=== PATIENT | male | born 1945 | race Caucasian/White ===

== ENCOUNTER 2017-04-17 22:19 | Emergency (ER) | payer MEDICARE, MEDICAID, SELFPAY ==
[2017-04-17 22:22] VITALS: BP 131/69; PULSE 112; RESP 22; TEMP 38.7; O2SAT 86; BMI 35.2
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
--- NOTE | 2017-04-17 22:53 | HMH.EDCP ---
ED Disposition Clinical Impression: Collapse of left lung, Pleural effusion, left Fever Qualifiers: Fever type: unspecified Qualified Code(s): R50.9 - Fever, unspecified Disposition: Xfer Short-Term Hosp Condition on Discharge: Fair Referrals: Michael Young [Primary Care Provider] - Forms: Transfer Record - ED - Critical Care Critical Care Time: No Attestation: On 04/17/17, the high probability of a clinically significant, sudden or life threatening deterioration of the following system(s) required my full and direct attention, intervention and personal management. The time I documented below is in addition to time spent performing reported procedures but includes the following listed in this critical care notation. Medical Decision Making Vital Signs: 04/17/17 22:22 04/17/17 23:43 Temperature 101.7 F H Temperature Source Rectal Pulse Rate [Right Brachial] 112 H 104 H Respiratory Rate 22 22 Blood Pressure [Right Arm] 131/69 96/66 Blood Pressure Mean [Right Arm] 89 76 Blood Pressure Source [Right Arm] Automatic Cuff Automatic Cuff Blood Pressure Position [Right Arm] Sitting Sitting 02 Sat by Pulse Oximetry 86 L 97 Oxygen Delivery Method Room Air Nasal Cannula - Lab Data Lab Results 04/17/17 23:00: WBC 20.8 H*, RBC 4.80, Hgb 13.6 L, Hct 43.2, MCV 90.1, MCH 28.3, MCHC 31.4 L, RDW 14.8, Plt Count 422, MPV 7.5, Neut % (Auto) 78.4, Lymph % (Auto) 12.3, [place] % (Auto) 7.8, Eos % (Auto) 1.2, Baso % (Auto) 0.3, Neut # (Auto) 16.3 H, Lymph # (Auto) 2.6, [place] # (Auto) 1.6 H, Eos # (Auto) 0.3, Baso # (Auto) 0.1, Total Counted 100, Neutrophils % (Manual) 89 H, Lymphocytes % (Manual) 5 L, Monocytes % (Manual) 6, Platelet Estimate Normal, RBC Morphology Normal 04/17/17 23:00: Sodium 135 L, Potassium 4.5, Chloride 92 L, Carbon Dioxide 37 H, Anion Gap 10.5, BUN 42 H, Creatinine 1.68 H, Estimated Creat Clear 67, Estimated GFR 40 L, Est GFR ( Amer) 49 L, Glucose 164 H, Calcium 9.4, Total Bilirubin 0.5, AST 20, ALT 5 L, Alkaline Phosphatase 173 H, Total Creatine Kinase 21 L, CK-MB (CK-2) < 0.5, CK-MB (CK-2) Rel Index 2.4, Troponin I < 0.02, Total Protein 7.0, Albumin 1.8 L, Globulin 5.2 H, Albumin/Globulin Ratio 0.3 L 04/17/17 23:00: Lactic Acid 1.9 04/17/17 : Urine Color Yellow, Urine Appearance Clear, Urine pH 5.5, Ur Specific [place] 1.015, Urine Protein Trace, Urine Glucose (UA) Negative, Urine Ketones Negative, Urine Blood Negative, Urine Nitrate Negative, Urine Bilirubin Negative, Urine Urobilinogen 1.0, Ur Leukocyte Esterase Negative, Urine RBC Occasional, Urine WBC Occasional, Ur Squamous Epith Cells None, Urine Bacteria None 04/18/17 : Influenza Type A Ag Negative, Influenza Type B Ag Negative, Group A Strep Rapid Negative Result diagrams: 04/17/17 23:00 04/17/17 23:00 Orders (Tests/Meds): ED MEDICATIONS Generic Name Dose Route Start Last Admin Trade Name Freq PRN Reason Stop Dose Admin Levofloxacin/Dextrose 750 mg in 150 mls @ 100 mls/hr 04/18/17 01:16 Levofloxacin 750mg/150ml Premix IV 04/18/17 02:45 ONCE ONE Protocol Discontinued Medications Generic Name Dose Route Start Last Admin Trade Name Freq PRN Reason Stop Dose Admin Acetaminophen 650 mg 04/18/17 01:03 Acetaminophen 325mg Tab PO 04/18/17 01:04 ONCE ONE Cefepime HCl 2 gm/ Sodium 100 mls @ 200 mls/hr 04/18/17 01:15 Chloride IV 04/18/17 01:16 ONCE ONE Protocol Miscellaneous 1 each 04/18/17 01:15 Vancomycin Consult Request NOTAPPLIC 04/18/17 01:16 CONSULT PHARMACY ONE ORDERS Category Date Time Status CT chest wo con Stat Cat Scan 04/17/17 23:40 Taken Chest XR -- portable [XR chest portable] Stat Exams 04/17/17 22:50 Taken Amylase Stat Lab 04/18/17 00:59 Ordered Lipase Stat Lab 04/18/17 00:59 Ordered Blood Culture Stat Micro 04/17/17 23:00 Received Strep Screen Confirmation Stat Micro 04/18/17 Received ECG Request by /Thomas Stat Y 04/17/17 22:50 Ord
[2017-04-17 23:21] LABS: Basophils # 0.1 K/mm3 (0-0.2); Basophils % 0.3 % (0.1-2.0); Eosinophils # 0.3 K/mm3 (0.0-0.4); Eosinophils % 1.2 % (0.1-12.0); Hematocrit 43.2 % (42.0-52.0); Hemoglobin 13.6 g/dL (14.1-18.0); Lymphocytes # 2.6 K/mm3 (0.7-4.5); Lymphocytes % 12.3 K/mm3 (10-50); Mean Corpuscular HGB Conc 31.4 g/dL (31.8-35.4); Mean Corpuscular Hemoglobin 28.3 pg (27.0-31.2); Mean Corpuscular Volume 90.1 fl (80-94); Mean Platelet Volume 7.5 fl (7.4-10.4); Monocytes # 1.6 K/mm3 (0.1-1.0); Monocytes % 7.8 % (1.7-9.3); Neutrophils # 16.3 K/mm3 (1.8-7.8); Neutrophils % 78.4 % (37.0-80.0); Platelet Count 422 K/mm3 (142-424); Red Cell Distribution Width 14.8 % (11.5-17.5); White Blood Count 20.8 K/mm3 (4.8-10.8)
[2017-04-17 23:22] LABS: Appearance,Urine CLEAR (Clear); Bilirubin,Urine Negative (Negative); Blood, Urine Negative (Negative); Color,Urine YELLOW (Yellow); Glucose,Urine (UA) Negative (Negative); Ketones,Urine Negative (Negative); Leukocyte Esterase,Urine Negative (Negative); Microscopic, Urine URINE MICROSCOPIC (MICROSCOPIC); Nitrate,Urine Negative (Negative); PH,Urine 5.5 (5.0-8.5); Protein,Urine TRACE (Negative); Specific Gravity, Urine 1.015 (1.005-1.030)
[2017-04-17 23:31] LABS: MANUAL DIFFERENTIAL MANUAL DIFFERENTIAL (MANUAL DIFF)
[2017-04-17 23:32] LABS: Lactic Acid 1.9 mmol/L (0.4-2.0)
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
[2017-04-17 23:43] VITALS: BP 96/66; PULSE 104; RESP 22; O2SAT 97
[2017-04-17 23:43] LABS: Alanine Aminotransferase 5 U/L (12-78); Albumin Level 1.8 gm/dL (3.4-5.0); Albumin/Globulin Ratio 0.3 (1.1-1.8); Alkaline Phosphatase 173 U/L (46-116); Anion Gap 10.5 mEq/L (5-15); Aspartate Amino Transferase 20 U/L (15-37); Bilirubin,Total 0.5 mg/dL (0.2-1.0); Blood Urea Nitrogen 42 mg/dL (7-18); CKMB Relative Index 2.4 U/L (0-4.0); Calcium 9.4 mg/dL (8.5-10.1); Carbon Dioxide 37 mmol/L (21.0-32.0); Chloride 92 mmol/L (98-107); Creatine Kinase 21 U/L (39-308); Creatine Kinase MB < 0.5 mg/ml (0.0-3.6); Creatinine Clearance Estimated 67 mL/min (0-300); Creatinine,Serum 1.68 mg/dL (0.70-1.30); Estimated Glomerular Filt Rate 40 ml/min (>60); GFR (African American) 49 ML/MIN (>60); Globulin 5.2 gm/dl (1.3-3.2); Glucose 164 mg/dL (74-106); Potassium 4.5 mmoL/L (3.5-5.1); Sodium 135 mmol/L (136-145); Troponin I < 0.02 ng/ml (0.00-0.06)
[2017-04-18 00:12] LABS: RBC,Urine Occasional #/hpf (0-3); WBC,Urine Occasional #/hpf (0-3)
--- NOTE | 2017-04-18 01:12 | PC.NURSE ---
DR LAKHANI SPEAKING WITH DR VALDIVIA FOR FURTHER EVAL.
[2017-04-18 01:23] LABS: Lymphocytes % 5 % (10-50); Monocytes % 6 % (2-9); Neutrophils % 89 % (42-76); Platelet Estimate Normal; RBC Morphology Normal; Total Cells Counted 100
[2017-04-18 01:25] LABS: Strep Scrn Group A (Rapid) Negative (Negative)
[2017-04-18 01:26] LABS: Amylase 28 U/L (25-125); Lipase 46 u/L (73-393)
--- NOTE | 2017-04-18 01:30 | PC.NURSE ---
DR LAKHANI SPEAKING WITH DR KELLEY AT FOR TRANSFER
[2017-04-18 02:05] VITALS: BP 142/74; PULSE 105; RESP 20; O2SAT 96
--- NOTE | 2017-04-18 02:07 | PC.NURSE ---
WHILE PULLING PATIENT UP IN BED PATIENT OBTAINED SKIN TEAR TI LEFT ELBOW/ARM. AREA REPAIRED WITH STERI STRIPS AND COVERED WITH KOBAN
--- NOTE | 2017-04-18 02:24 | PC.NURSE ---
transferred to [facility] ed per ems. Condition stable
[2017-04-18 02:25] VITALS: BP 142/74; PULSE 105; RESP 24; O2SAT 96
== END 2017-04-18 02:27 | disposition short-term general hospital (02) ==
PROVIDERS: Emergency Provider Emergency Medicine; Family Provider Internal Medicine; PCP Internal Medicine
DX: J98.19 Other pulmonary collapse (principal); J90 Pleural effusion, not elsewhere classified; R50.9 Fever, unspecified; Z79.02 Long term (current) use of antithrombotics/antiplatelets; Z79.891 Long term (current) use of opiate analgesic; Z79.899 Other long term (current) drug therapy; E11.9 Type 2 diabetes mellitus without complications
CPT/HCPCS: 71045; 71250; 80053; 81001; 82150; 82550; 82553; 83605; 83690; 84484; 85007; 85025; 87040; 87275; 87276; 87430; 93005; 93041; 96365; 96367; 99285; J1956

== ENCOUNTER 2017-05-30 12:05 | Emergency (ER) | payer MEDICARE, MEDICAID, SELFPAY ==
[2017-05-30 12:08] VITALS: BP 119/59; PULSE 63; RESP 22; TEMP 36.6; O2SAT 96; BMI 33.4
--- NOTE | 2017-05-30 12:29 | HMH.EDGENADL ---
ED Disposition Clinical Impression: Rectal bleeding, External hemorrhoids without complication, Lung cancer Disposition: Home, Self-Care Condition on Discharge: Fair Additional Instructions: 1- repeat H/H in AM x 3 days and report to the long-term doctor. 2- hemoccult stool x 3 . 3- recommend outpatient colonscopy for colon cancer screening. 4- preparation h for hemorrhides prn. 5- return for any change. Referrals: Michael Young [Primary Care Provider] - - Critical Care Critical Care Time: No Attestation: On 05/30/17, the high probability of a clinically significant, sudden or life threatening deterioration of the following system(s) required my full and direct attention, intervention and personal management. The time I documented below is in addition to time spent performing reported procedures but includes the following listed in this critical care notation. Medical Decision Making - Medical Records Medical records reviewed: Yes: I reviewed the patient's medical records. Comment: I did review his long-term records including medications and most recent labs dated May 04, 2017. Vital Signs: 05/30/17 12:08 05/30/17 12:55 05/30/17 13:38 Temperature 97.8 F Temperature Source Oral Pulse Rate [Orthostatic Lying Right Radial] 60 Pulse Rate [Orthostatic Sitting Right Radial] 65 Pulse Rate [Right Brachial] 63 59 L Respiratory Rate 22 18 Blood Pressure [Orthostatic Lying Right Arm] 135/72 Blood Pressure [Orthostatic Sitting Right Arm] 138/83 Blood Pressure [Right Arm] 119/59 138/71 Blood Pressure Mean [Right Arm] 79 93 Blood Pressure Source [Right Arm] Automatic Cuff Automatic Cuff Blood Pressure Position [Right Arm] Sitting Sitting 02 Sat by Pulse Oximetry 96 97 Oxygen Delivery Method Nasal Cannula Nasal Cannula Oxygen Flow Rate (LPM) 2 2 - Lab Data Lab Results 05/30/17 12:00: WBC 11.0 H, RBC 4.53 L, Hgb 12.7 L, Hct 41.2 L, MCV 90.9, MCH 28.0, MCHC 30.8 L, RDW 15.7, Plt Count 434 H, MPV 7.0 L, Neut % (Auto) 54.0, Lymph % (Auto) 32.9, [place] % (Auto) 5.1, Eos % (Auto) 7.2, Baso % (Auto) 0.7, Neut # (Auto) 5.9, Lymph # (Auto) 3.6, [place] # (Auto) 0.6, Eos # (Auto) 0.8 H, Baso # (Auto) 0.1 05/30/17 12:00: Sodium 139, Potassium 4.1, Chloride 94 L, Carbon Dioxide 42 H*, Anion Gap 7.1, BUN 24 H, Creatinine 1.33 H, Estimated Creat Clear 72, Estimated GFR 53 L, Est GFR ( Amer) 64, Glucose 45 L, Calcium 9.2, Total Bilirubin 0.4, AST 9 L, ALT 10 L, Alkaline Phosphatase 129 H, Total Protein 7.5, Albumin 2.8 L, Globulin 4.7 H, Albumin/Globulin Ratio 0.6 L 05/30/17 12:00: PT 10.4, INR 0.96, APTT 25.6 05/30/17 12:00: Magnesium 1.6 05/30/17 12:15: Stool Occult Blood Negative Result diagrams: 05/30/17 12:00 05/30/17 12:00 Orders (Tests/Meds): ORDERS Category Date Time Status Acute abdomen XR series [XR acute abdomen series] Stat Exams 05/30/17 12:33 Taken - Radiology Data #1 Image(s): Chest, Abdomen Image Reviewed: Yes I reviewed the patient's radiology image Preliminary Findings: Abnormal Chest x-ray: Chronic changes that is a stable from the prior chest x-ray 12/09/2016. No acute infiltrates cannot be excluded. Abdominal x-rays: Postop changes chronic pattern no acute findings. - Mario Inquiry Pt receiving controlled substance: No Mario was queried for this patient: No Medical Decision Making Narrative: I reviewed Mr. Bryan's labs and x-rays and compared to prior labs from November 2016 and April 2017. His hemoglobin is better 12 g. He has chronic changes on the chest x-ray that is unchanged from prior February 2017 examination. His Hemoccult stool was negative and orthostatics was stable. He had no more episodes of rectal bleeding. The source of bleeding most likely to be an external hemorrhoid. Though I would recommend repeat hemoglobin in the morning and follow-up with colonoscopy. The patient remained stable with no pain
--- NOTE | 2017-05-30 12:32 | ED_ITS ---
ED Disposition Clinical Impression: Rectal bleeding, External hemorrhoids without complication, Lung cancer Disposition: Home, Self-Care Condition on Discharge: Fair Additional Instructions: 1- repeat H/H in AM x 3 days and report to the prison doctor. 2- hemoccult stool x 3 . 3- recommend outpatient colonscopy for colon cancer screening. 4- preparation h for hemorrhides prn. 5- return for any change. Referrals: Michael Young [Primary Care Provider] - - Critical Care Critical Care Time: No Attestation: On 05/30/17, the high probability of a clinically significant, sudden or life threatening deterioration of the following system(s) required my full and direct attention, intervention and personal management. The time I documented below is in addition to time spent performing reported procedures but includes the following listed in this critical care notation. Medical Decision Making - Medical Records Medical records reviewed: Yes: I reviewed the patient's medical records. Comment: I did review his prison records including medications and most recent labs dated May 04, 2017. Vital Signs: 05/30/17 12:08 05/30/17 12:55 05/30/17 13:38 Temperature 97.8 F Temperature Source Oral Pulse Rate [Orthostatic Lying Right Radial] 60 Pulse Rate [Orthostatic Sitting Right Radial] 65 Pulse Rate [Right Brachial] 63 59 L Respiratory Rate 22 18 Blood Pressure [Orthostatic Lying Right Arm] 135/72 Blood Pressure [Orthostatic Sitting Right Arm] 138/83 Blood Pressure [Right Arm] 119/59 138/71 Blood Pressure Mean [Right Arm] 79 93 Blood Pressure Source [Right Arm] Automatic Cuff Automatic Cuff Blood Pressure Position [Right Arm] Sitting Sitting 02 Sat by Pulse Oximetry 96 97 Oxygen Delivery Method Nasal Cannula Nasal Cannula Oxygen Flow Rate (LPM) 2 2 - Lab Data Lab Results 05/30/17 12:00: WBC 11.0 H, RBC 4.53 L, Hgb 12.7 L, Hct 41.2 L, MCV 90.9, MCH 28.0, MCHC 30.8 L, RDW 15.7, Plt Count 434 H, MPV 7.0 L, Neut % (Auto) 54.0, Lymph % (Auto) 32.9, [place] % (Auto) 5.1, Eos % (Auto) 7.2, Baso % (Auto) 0.7, Neut # (Auto) 5.9, Lymph # (Auto) 3.6, [place] # (Auto) 0.6, Eos # (Auto) 0.8 H, Baso # (Auto) 0.1 05/30/17 12:00: Sodium 139, Potassium 4.1, Chloride 94 L, Carbon Dioxide 42 H*, Anion Gap 7.1, BUN 24 H, Creatinine 1.33 H, Estimated Creat Clear 72, Estimated GFR 53 L, Est GFR ( Amer) 64, Glucose 45 L, Calcium 9.2, Total Bilirubin 0.4, AST 9 L, ALT 10 L, Alkaline Phosphatase 129 H, Total Protein 7.5, Albumin 2.8 L, Globulin 4.7 H, Albumin/Globulin Ratio 0.6 L 05/30/17 12:00: PT 10.4, INR 0.96, APTT 25.6 05/30/17 12:00: Magnesium 1.6 05/30/17 12:15: Stool Occult Blood Negative Result diagrams: 05/30/17 12:00 05/30/17 12:00 Orders (Tests/Meds): ORDERS Category Date Time Status Acute abdomen XR series [XR acute abdomen series] Stat Exams 05/30/17 12:33 Taken - Radiology Data #1 Image(s): Chest, Abdomen Image Reviewed: Yes I reviewed the patient's radiology image Preliminary Findings: Abnormal Chest x-ray: Chronic changes that is a stable from the prior chest x-ray 2016. No acute infiltrates cannot be excluded. Abdominal x-rays: Postop changes chronic pattern no acute findings. - Mario Inquiry Pt receiving controlled substance: No Mario was queried for this patient: No Medical De
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
[2017-05-30 12:36] LABS: Basophils # 0.1 K/mm3 (0-0.2); Basophils % 0.7 % (0.1-2.0); Eosinophils # 0.8 K/mm3 (0.0-0.4); Eosinophils % 7.2 % (0.1-12.0); Hematocrit 41.2 % (42.0-52.0); Hemoglobin 12.7 g/dL (14.1-18.0); Lymphocytes # 3.6 K/mm3 (0.7-4.5); Lymphocytes % 32.9 K/mm3 (10-50); Mean Corpuscular HGB Conc 30.8 g/dL (31.8-35.4); Mean Corpuscular Volume 90.9 fl (80-94); Monocytes # 0.6 K/mm3 (0.1-1.0); Monocytes % 5.1 % (1.7-9.3); Neutrophils # 5.9 K/mm3 (1.8-7.8); Platelet Count 434 K/mm3 (142-424); Red Blood Count 4.53 M/mm3 (4.60-6.20); Red Cell Distribution Width 15.7 % (11.5-17.5)
[2017-05-30 12:47] LABS: Magnesium 1.6 mg/dL (1.4-2.2)
[2017-05-30 12:47] LABS: Occult Blood,Stool Negative (Negative)
[2017-05-30 12:50] LABS: Activated Partial Thrombo Time 25.6 seconds (23.6-34.0); INR 0.96 (0.9-1.1); Prothrombin Time 10.4 seconds (9.4-11.8)
[2017-05-30 12:51] LABS: Alanine Aminotransferase 10 U/L (12-78); Albumin Level 2.8 gm/dL (3.4-5.0); Albumin/Globulin Ratio 0.6 (1.1-1.8); Alkaline Phosphatase 129 U/L (46-116); Anion Gap 7.1 mEq/L (5-15); Aspartate Amino Transferase 9 U/L (15-37); Bilirubin,Total 0.4 mg/dL (0.2-1.0); Blood Urea Nitrogen 24 mg/dL (7-18); Calcium 9.2 mg/dL (8.5-10.1); Chloride 94 mmol/L (98-107); Creatinine Clearance Estimated 72 mL/min (0-300); Creatinine,Serum 1.33 mg/dL (0.70-1.30); Estimated Glomerular Filt Rate 53 ml/min (>60); GFR (African American) 64 ML/MIN (>60); Globulin 4.7 gm/dl (1.3-3.2); Potassium 4.1 mmoL/L (3.5-5.1); Sodium 139 mmol/L (136-145); Total Protein,Serum 7.5 gm/dL (6.4-8.2)
[2017-05-30 12:53] LABS: Glucose 45 mg/dL (74-106)
[2017-05-30 12:54] LABS: Carbon Dioxide 42 mmol/L (21.0-32.0)
[2017-05-30 12:55] VITALS: BP 135/72; BP 138/83; PULSE 60; PULSE 65
--- NOTE | 2017-05-30 12:58 | PC.NURSE ---
lab called to report glucose on blood that was drawn by EMS was 45. Pt received oral glucose per EMS.
--- NOTE | 2017-05-30 13:00 | PC.NURSE ---
Rad at bedside doing chest xray.
[2017-05-30 13:38] VITALS: BP 138/71; PULSE 59; RESP 18; O2SAT 97
--- NOTE | 2017-05-30 14:10 | PC.NURSE ---
Report called to Geneta at [facility].
[2017-05-30 14:11] VITALS: BP 118/68; PULSE 70; RESP 20; TEMP 36.7; O2SAT 97
== END 2017-05-30 14:14 | disposition home or self-care (01) ==
PROVIDERS: Emergency Provider Emergency Medicine; Family Provider Internal Medicine; PCP Internal Medicine
DX: K64.4 Residual hemorrhoidal skin tags (principal); E11.649 Type 2 diabetes mellitus with hypoglycemia without coma; Z79.4 Long term (current) use of insulin; C34.90 Malignant neoplasm of unspecified part of unspecified bronchus or lung; Z87.891 Personal history of nicotine dependence
CPT/HCPCS: 74021; 80053; 82272; 83735; 85025; 85610; 85730; 99283; G0328

== ENCOUNTER 2017-06-28 09:39 | Emergency (ER) | payer MEDICARE, MEDICAID, SELFPAY ==
[2017-06-28 09:41] VITALS: BP 86/48; PULSE 59; RESP 20; TEMP 36.1; O2SAT 100; BMI 29.5
--- NOTE | 2017-06-28 10:06 | PC.NURSE ---
LATOYA TORO at
[2017-06-28 10:13] VITALS: BP 99/52; PULSE 64; RESP 20; O2SAT 100
[2017-06-28 10:15] VITALS: O2SAT 100
--- NOTE | 2017-06-28 10:19 | CT_ITS ---
CT head/brain wo con COMPARISON: None HISTORY: Altered mental status, history of lung cancer TECHNIQUE: Multiaxial scans obtained from base skull to the vertex and were performed without IV contrast. FINDINGS: There is moderate mucoperiosteal thickening in both maxillary sinuses. 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 There is minimal mucoperiosteal thickening in the sphenoid sinus and ethmoid sinuses, frontal sinuses are clear. The basilar cisterns are somewhat prominent. The ventricular system is normal. There is no definite ischemic infarct and there is no bleed. There are mild periventricular hypodensities consistent with chronic ischemic white matter changes. There is no extra-axial fluid collection. The sylvian fissures and cortical sulci are somewhat prominent. IMPRESSION: Findings of mild to moderate cortical atrophy and mild chronic white matter changes, no acute intracranial pathology noted. Moderate sinus disease as described likely chronic
--- NOTE | 2017-06-28 10:19 | XR_ITS ---
XR chest portable COMPARISON: Portable upright chest 04/17/2017 HISTORY: Altered mental status TECHNIQUE: Portable upright chest FINDINGS: Again noted is almost total whiteout left hemithorax with a small amount of aerated lung in the left lateral chest. Again this is likely consistent with diffuse collapse of the left lung though significant postobstructive pneumonitis and pleural fluid could give this appearance as well. I somewhat favor this possibility as there is no mediastinal shift on today's film as was seen on the study in March. Right lung field remains grossly clear. Impression: Essentially total opacification left hemithorax probably due to combination of prominent postobstructive pneumonitis and possible left hilar mass though partial left lung collapse and this is associated pleural fluid likely present as well.
--- NOTE | 2017-06-28 10:21 | HMH.EDAMS ---
ED Disposition Clinical Impression: Altered mental status, Dehydration, Lung cancer, CAD (coronary artery disease), Diabetes, Pleural effusion on left Disposition: Xfer Short-Term Hosp Condition on Discharge: Fair Referrals: Michael Young [Primary Care Provider] - - Critical Care Critical Care Time: Yes (30 minutes ) Attestation: On 06/28/17, the high probability of a clinically significant, sudden or life threatening deterioration of the following system(s) required my full and direct attention, intervention and personal management. The time I documented below is in addition to time spent performing reported procedures but includes the following listed in this critical care notation. Vital system(s) involved:: Circulatory Failure, Respiratory Failure, Renal Failure My critical care processes included: Assessment & monitoring of V/S, Initial and Re-exams, Data Review/Interpretation, Coordinating Care, Medication Orders and management, Documentation Medical Decision Making - Mario Inquiry Pt receiving controlled substance: No Mario was queried for this patient: No Vital Signs: 06/28/17 09:41 06/28/17 10:13 06/28/17 10:15 Temperature 97.0 F L Temperature Source Rectal Pulse Rate [Right Brachial] 59 L 64 Respiratory Rate 20 20 Blood Pressure [Right Arm] 86/48 99/52 Blood Pressure Mean [Right Arm] 60 67 Blood Pressure Source [Right Arm] Automatic Cuff Automatic Cuff Blood Pressure Position [Right Arm] Supine Sitting 02 Sat by Pulse Oximetry 100 100 100 Oxygen Delivery Method Nasal Cannula Non-Rebreather Nasal Cannula Nasal Cannula Oxygen Flow Rate (LPM) 3 3 3 06/28/17 10:52 06/28/17 11:08 Temperature Temperature Source Pulse Rate [Right Brachial] 69 129 H Respiratory Rate 16 22 Blood Pressure [Right Arm] 111/52 113/58 Blood Pressure Mean [Right Arm] 71 76 Blood Pressure Source [Right Arm] Automatic Cuff Automatic Cuff Blood Pressure Position [Right Arm] Supine Sitting 02 Sat by Pulse Oximetry 99 98 Oxygen Delivery Method Nasal Cannula Nasal Cannula Oxygen Flow Rate (LPM) 3 3 - Lab Data Lab Results 06/28/17 10:00: WBC 9.0, RBC 4.33 L, Hgb 12.1 L, Hct 41.2 L, MCV 95.1 H, MCH 27.9, MCHC 29.3 L, RDW 15.7, Plt Count 329, MPV 7.4, Neut % (Auto) 82.6 H, Lymph % (Auto) 10.4, [place] % (Auto) 6.0, Eos % (Auto) 0.6, Baso % (Auto) 0.4, Neut # (Auto) 7.4, Lymph # (Auto) 0.9, [place] # (Auto) 0.5, Eos # (Auto) 0.1, Baso # (Auto) 0.0 06/28/17 10:00: Sodium 137, Potassium 5.8 H, Chloride 93 L, Carbon Dioxide 43 H*, Anion Gap 6.8, BUN 59 H, Creatinine 2.94 H, Estimated Creat Clear 30, Estimated GFR 21 L, Est GFR ( Amer) 26 L, Glucose 196 H, Calcium 9.2, Total Bilirubin 0.3, AST 10 L, ALT 3 L, Alkaline Phosphatase 126 H, Total Creatine Kinase 13 L, CK-MB (CK-2) < 0.5, CK-MB (CK-2) Rel Index 3.8, Troponin I < 0.02, Total Protein 7.2, Albumin 2.2 L, Globulin 5.0 H, Albumin/Globulin Ratio 0.4 L 06/28/17 10:00: Influenza Type A Ag Positive A, Influenza Type B Ag Negative 06/28/17 10:00: Lactic Acid 1.0 06/28/17 10:00: Group A Strep Rapid Negative 06/28/17 10:00: Magnesium 2.3 H 06/28/17 10:45: Ammonia 14 L Result diagrams: 06/28/17 10:00 06/28/17 10:00 Orders (Tests/Meds): ED MEDICATIONS Generic Name Dose Route Start Last Admin Trade Name Freq PRN Reason Stop Dose Admin Oseltamivir Phosphate 75 mg 06/28/17 21:00 Tamiflu 75mg Capsule PO 07/12/17 20:59 BID DIMITRIOS Discontinued Medications Generic Name Dose Route Start Last Admin Trade Name Freq PRN Reason Stop Dose Admin Sodium Chloride 1,000 mls @ 999 mls/hr 06/28/17 10:15 06/28/17 10:11 Sod Chlor 0.9% 1000ml Bag IV 06/28/17 11:15 999 mls/hr .[id number] DIMITRIOS Administration ORDERS Category Date Time Status XR chest portable Stat Exams 06/28/17 10:19 Taken Drug Screen,Urine Stat Lab 06/28/17 10:28 Ordered Urinalysis and Microscopic Stat Lab 06/28/17 10:19 Ordered Blood Culture Stat Micro 06/28/17 10:05 Received
[2017-06-28 10:23] LABS: Basophils % 0.4 % (0.1-2.0); Eosinophils # 0.1 K/mm3 (0.0-0.4); Eosinophils % 0.6 % (0.1-12.0); Hematocrit 41.2 % (42.0-52.0); Hemoglobin 12.1 g/dL (14.1-18.0); Lymphocytes # 0.9 K/mm3 (0.7-4.5); Lymphocytes % 10.4 K/mm3 (10-50); Mean Corpuscular HGB Conc 29.3 g/dL (31.8-35.4); Mean Corpuscular Hemoglobin 27.9 pg (27.0-31.2); Mean Corpuscular Volume 95.1 fl (80-94); Mean Platelet Volume 7.4 fl (7.4-10.4); Monocytes # 0.5 K/mm3 (0.1-1.0); Neutrophils # 7.4 K/mm3 (1.8-7.8); Neutrophils % 82.6 % (37.0-80.0); Platelet Count 329 K/mm3 (142-424); Red Blood Count 4.33 M/mm3 (4.60-6.20); Red Cell Distribution Width 15.7 % (11.5-17.5)
--- NOTE | 2017-06-28 10:24 | ED_ITS ---
ED Disposition Clinical Impression: Altered mental status, Dehydration, Lung cancer, CAD (coronary artery disease) , Diabetes, Pleural effusion on left Disposition: Xfer Short-Term Hosp Condition on Discharge: Fair Referrals: Michael Young [Primary Care Provider] - - Critical Care Critical Care Time: Yes (30 minutes ) Attestation: On 06/28/17, the high probability of a clinically significant, sudden or life threatening deterioration of the following system(s) required my full and direct attention, intervention and personal management. The time I documented below is in addition to time spent performing reported procedures but includes the following listed in this critical care notation. Vital system(s) involved:: Circulatory Failure, Respiratory Failure, Renal Failure My critical care processes included: Assessment & monitoring of V/S, Initial and Re-exams, Data Review/Interpretation, Coordinating Care, Medication Orders and management, Documentation Medical Decision Making - Mario Inquiry Pt receiving controlled substance: No Mario was queried for this patient: No Vital Signs: 06/28/17 09:41 06/28/17 10:13 06/28/17 10:15 Temperature 97.0 F L Temperature Source Rectal Pulse Rate [Right Brachial] 59 L 64 Respiratory Rate 20 20 Blood Pressure [Right Arm] 86/48 99/52 Blood Pressure Mean [Right Arm] 60 67 Blood Pressure Source [Right Arm] Automatic Cuff Automatic Cuff Blood Pressure Position [Right Arm] Supine Sitting 02 Sat by Pulse Oximetry 100 100 100 Oxygen Delivery Method Nasal Cannula Non-Rebreather Nasal Cannula Nasal Cannula Oxygen Flow Rate (LPM) 3 3 3 06/28/17 10:52 06/28/17 11:08 Temperature Temperature Source Pulse Rate [Right Brachial] 69 129 H Respiratory Rate 16 22 Blood Pressure [Right Arm] 111/52 113/58 Blood Pressure Mean [Right Arm] 71 76 Blood Pressure Source [Right Arm] Automatic Cuff Automatic Cuff Blood Pressure Position [Right Arm] Supine Sitting 02 Sat by Pulse Oximetry 99 98 Oxygen Delivery Method Nasal Cannula Nasal Cannula Oxygen Flow Rate (LPM) 3 3 - Lab Data Lab Results 06/28/17 10:00: WBC 9.0, RBC 4.33 L, Hgb 12.1 L, Hct 41.2 L, MCV 95.1 H, MCH 27.9, MCHC 29.3 L, RDW 15.7, Plt Count 329, MPV 7.4, Neut % (Auto) 82.6 H, Lymph % (Auto) 10.4, [place] % (Auto) 6.0, Eos % (Auto) 0.6, Baso % (Auto) 0.4, Neut # (Auto) 7.4, Lymph # (Auto) 0.9, [place] # (Auto) 0.5, Eos # (Auto) 0.1, Baso # (Auto) 0.0 06/28/17 10:00: Sodium 137, Potassium 5.8 H, Chloride 93 L, Carbon Dioxide 43 H* , Anion Gap 6.8, BUN 59 H, Creatinine 2.94 H, Estimated Creat Clear 30, Estimated GFR 21 L, Est GFR ( Amer) 26 L, Glucose 196 H, Calcium 9.2, Total Bilirubin 0.3, AST 10 L, ALT 3 L, Alkaline Phosphatase 126 H, Total Creatine Kinase 13 L, CK-MB (CK-2) < 0.5, CK-MB (CK-2) Rel Index 3.8, Troponin I < 0.02, Total Protein 7.2, Albumin 2.2 L, Globulin 5.0 H, Albumin/Globulin Ratio 0.4 L 06/28/17 10:00: Influenza Type A Ag Positive A, Influenza Type B Ag Negative 06/28/17 10:00: Lactic Acid 1.0 06/28/17 10:00: Group A Strep Rapid Negative 06/28/17 10:00: Magnesium 2.3 H 06/28/17 10:45: Ammonia 14 L Result diagrams: 06/28/17 10:00 06/28/17 10:00 Orders (Tests/Meds): ED MEDICATIONS Generic Name Dose Route Start Last Admin Trade Name Freq PRN Reason Stop Dose Admin Oseltamivir Phosphate 75 mg 06/28
[2017-06-28 10:32] LABS: Strep Scrn Group A (Rapid) Negative (Negative)
[2017-06-28 10:42] LABS: Magnesium 2.3 mg/dL (1.4-2.2)
[2017-06-28 10:50] LABS: Alanine Aminotransferase 3 U/L (12-78); Albumin Level 2.2 gm/dL (3.4-5.0); Albumin/Globulin Ratio 0.4 (1.1-1.8); Alkaline Phosphatase 126 U/L (46-116); Aspartate Amino Transferase 10 U/L (15-37); Bilirubin,Total 0.3 mg/dL (0.2-1.0); Blood Urea Nitrogen 59 mg/dL (7-18); Calcium 9.2 mg/dL (8.5-10.1); Chloride 93 mmol/L (98-107); Creatine Kinase 13 U/L (39-308); Creatinine Clearance Estimated 30 mL/min (0-300); Creatinine,Serum 2.94 mg/dL (0.70-1.30); Estimated Glomerular Filt Rate 21 ml/min (>60); GFR (African American) 26 ML/MIN (>60); Glucose 196 mg/dL (74-106); Potassium 5.8 mmoL/L (3.5-5.1); Sodium 137 mmol/L (136-145); Total Protein,Serum 7.2 gm/dL (6.4-8.2); Troponin I < 0.02 ng/ml (0.00-0.06)
[2017-06-28 10:52] VITALS: BP 111/52; PULSE 69; RESP 16; O2SAT 99
[2017-06-28 10:55] LABS: CKMB Relative Index 3.8 U/L (0-4.0); Creatine Kinase MB < 0.5 ng/ml (0.0-3.6)
[2017-06-28 11:00] LABS: Anion Gap 6.8 mEq/L (5-15); Carbon Dioxide 43 mmol/L (21.0-32.0)
[2017-06-28 11:08] VITALS: BP 113/58; PULSE 129; RESP 22; O2SAT 98
[2017-06-28 11:09] LABS: Ammonia 14 umol/L (19-54)
--- NOTE | 2017-06-28 11:45 | PC.NURSE ---
LATOYA TORO spoke with Dr. Roberson at , pt accepted to ER.
--- NOTE | 2017-06-28 12:18 | PC.NURSE ---
contacted state guardianship on pt chart, spoke with Manasa Mcintosh, who gave consent to transfer pt to ER for a higher level of care. VincenzoRN confirmed consent at this time as well.
--- NOTE | 2017-06-28 12:26 | PC.NURSE ---
Report called to NORIS Rose at ER
--- NOTE | 2017-06-28 12:38 | PC.NURSE ---
1225 contacted [facility] for transfer
[2017-06-28 13:08] LABS: Microscopic, Urine URINE MICROSCOPIC (MICROSCOPIC)
[2017-06-28 13:09] LABS: Appearance,Urine TURBID (Clear); Bilirubin,Urine Negative (Negative); Blood, Urine 3+ (Negative); Color,Urine ORANGE (Yellow); Glucose,Urine (UA) Negative (Negative); Ketones,Urine Negative (Negative); Leukocyte Esterase,Urine Negative (Negative); Nitrate,Urine POSITIVE (Negative); Protein,Urine TRACE (Negative); Specific Gravity, Urine 1.025 (1.005-1.030); Urobilinogen,Urine 0.2 EU/dl (0.2)
[2017-06-28 13:17] LABS: Amphetamine/Metha Screen,Urine Negative ng/mL (<1000); Barbiturates Screen,Urine Negative ng/mL (<200); Benzodiazepines Screen,Urine Positive ng/mL (200); Cannabinoid Screen,Urine Negative ng/mL (<50); Cocaine Screen,Urine Negative ng/g (<300); Methadone Screen,Urine Negative ng/mL (<300); Opiate Screen,Urine Positive ng/mL (<300); Phencyclidine Screen,Urine Negative ng/mL (<25)
[2017-06-28 13:30] LABS: Bacteria,Urine Trace /lpf; RBC,Urine TNTC #/hpf (0-3); WBC,Urine Occasional #/hpf (0-3)
[2017-06-28 13:41] VITALS: BP 122/67; PULSE 113; RESP 24; TEMP 36.3; O2SAT 98
== END 2017-06-28 13:27 | disposition short-term general hospital (02) ==
PROVIDERS: Emergency Provider Emergency Medicine; Family Provider Internal Medicine; PCP Internal Medicine
DX: R41.82 Altered mental status, unspecified (principal); E86.0 Dehydration; C34.90 Malignant neoplasm of unspecified part of unspecified bronchus or lung; I25.10 Atherosclerotic heart disease of native coronary artery without angina pectoris; E11.65 Type 2 diabetes mellitus with hyperglycemia; Z79.4 Long term (current) use of insulin; J90 Pleural effusion, not elsewhere classified; Z87.891 Personal history of nicotine dependence
CPT/HCPCS: 36415; 70450; 71045; 80053; 80305; 81001; 82140; 82550; 82553; 83605; 83735; 84484; 85025; 87040; 87275; 87276; 87430; 93005; 96365; 99285